=== PATIENT | male | born 1985 | race Caucasian/White ===

== ENCOUNTER 2022-04-07 07:06 | Emergency (ER) | payer OTHER, SELFPAY ==
[2022-04-07 07:22] VITALS: BP 161/106; PULSE 102; RESP 18; TEMP 36.7; O2SAT 97
[2022-04-07 09:04] VITALS: BP 161/106; PULSE 102; RESP 17; TEMP 36.6; O2SAT 97
[2022-04-07] MEDS: LIDOCAINE, EPINEPHRINE, TETRACAINE VISCOUS SOLN 3 ML TOPICAL (10:27)
--- NOTE | 2022-04-07 11:36 | ED.SKABFB ---
HPI - Skin/Abscess/Foreign Bdy General Chief complaint: Skin/Abscess/Foreign Body Stated complaint: cyst to scalp Time Seen by Provider: 04/07/22 09:30 History of Present Illness HPI narrative: Patient is a 36-year-old male who presents ER with a painful cyst to his left scalp. He has history of cysts in his groin scalp and other parts of his body. They are occasionally become infected. This 1 became inflamed 2 days ago and he has pain going down towards his ear. No fevers or chills or sweats. No drainage. Hurts to touch. Related Data Allergies Allergy/AdvReac Type Severity Reaction Status Date / Time cat dander Allergy Unknown Verified 03/01/15 10:35 No Known Allergies Allergy Unverified 06/21/16 14:05 Review of Systems Constitutional: Constitutional: Denies chills and Denies fever(s) Integumentary/Breasts: Skin/Breast: Denies pruritus, Reports erythema and Denies rash Comments: Scalp cysts PMFSH Past Medical History Medical History (Updated 04/07/22 @ 11:52 by Antonio Paige MD) Essential (primary) hypertension Mixed hyperlipidemia Surgical History Surgical History (Updated 04/07/22 @ 11:52 by Antonio Paige MD) No pertinent past surgical history Social History Social History (Updated 04/07/22 @ 11:53 by Antonio Paige MD) Smoking status: Current every day smoker Alcohol intake: current Exam Narrative: GENERAL: Well-appearing, well-nourished, and in no acute distress. HEAD: Normocephalic. 2 separate scalp cysts largest being midline but not inflamed or tender. Left temporal region has a 1 cm diameter inflamed cyst that is very tender to touch. ENT: Mucous membranes moist. Posterior auricular lymphadenopathy left side. SKIN: Warm, dry, no rash. NEURO: Alert and oriented x3. PSYCH: Normal mood and affect. Course Course Emergency Course: Cyst removed. Everson here. Bactrim for home. Vital Signs Vital signs: Vital Signs Temperature 98.0 F 04/07/22 07:22 Pulse Rate 102 H 04/07/22 07:22 Respiratory Rate 18 04/07/22 07:22 Blood Pressure 161/106 H 04/07/22 07:22 Pulse Oximetry 97 04/07/22 07:22 Oxygen Delivery Room Air 04/07/22 07:22 Temperature 98 F 04/07/22 09:04 Pulse Rate 102 H 04/07/22 09:04 Respiratory Rate 17 04/07/22 09:04 Blood Pressure 161/106 H 04/07/22 09:04 Pulse Oximetry 97 04/07/22 09:04 Oxygen Delivery Room Air 04/07/22 09:04 Procedures Abscess I/D scalp: Date of Incision: 04/07/22 Time of Incision: 11:36 Local Anesthetic: none (LET) Technique: incised with #11 blade Irrigation: No Packing used?: iodoform I&D Results: Other (cystic cavity) Complications: pain Discharge Plan Discharge Clinical Impression: Scalp cyst Patient Disposition: Home, Self-Care Condition: Stable Instructions: Antibiotic Form, Cyst (ED) Additional Instructions: Return to the ER if you have chest pain or shortness of breath, you cannot keep down food or water, you lose consciousness, you have additional concerns. Remove your packing in 24 to 48 hours. Prescriptions: New sulfamethoxazole-trimethoprim [Bactrim DS] 800-160 mg tablet 1 tablet PO Q12H Qty: 14 0RF Follow-up/Referrals: UNKNOWN,DOCTOR [Primary Care Provider] - 1 Week Stand Alone Forms: Work/School Release IP
[2022-04-07] MEDS: HYDROcodone/acetaminophen (*CRX) 5-325 MG TABLET 1 TAB PO (12:05)
[2022-04-07 12:35] VITALS: TEMP 36.6
[2022-04-07 12:41] VITALS: BP 168/88; PULSE 83; RESP 15; TEMP 36.6; O2SAT 97
== END 2022-04-07 12:48 | disposition home or self-care (01) ==
PROVIDERS: Emergency Provider Emergency Medicine
DX: L72.9 Follicular cyst of the skin and subcutaneous tissue, unspecified (principal); I10 Essential (primary) hypertension; E78.2 Mixed hyperlipidemia; F17.200 Nicotine dependence, unspecified, uncomplicated
CPT/HCPCS: 10061; 99283; A9270

== ENCOUNTER 2022-06-27 13:07 | Outpatient (NON) | payer OTHER, SELFPAY | END 2022-06-27 13:08 | disposition home or self-care (01) | PROVIDERS: Visit Provider Nurse Practitioner | DX: L72.11 Pilar cyst (principal); B07.9 Viral wart, unspecified | CPT/HCPCS: 88304; 88305 ==

== ENCOUNTER 2023-09-26 10:58 | Outpatient (CLI) | payer OTHER, SELFPAY ==
--- NOTE | ~2023-09-26 | XR_ITS ---
XR foot RT 2V Ordering provider: Melodie Lee APRN History: . No injury pain at 1st MP joint for 1 year . Comparison: None. FINDINGS: BONES: No acute fracture or dislocation. JOINT SPACES: Normal. No tarsal coalition. SOFT TISSUES: Normal. IMPRESSION: No acute osseous abnormality of the right foot. Reviewed, dictated and finalized at location A.
== END 2023-09-26 10:59 ==
LOC: MICIMG 11:01
PROVIDERS: PCP Nurse Practitioner Family; Visit Provider Nurse Practitioner Family
DX: M25.571 Pain in right ankle and joints of right foot (principal)
CPT/HCPCS: 73620

== ENCOUNTER 2024-05-07 01:04 | Day surgery (SDC) | payer OTHER, SELFPAY ==
[2024-04-25 13:38] VITALS: BMI 34.9
--- NOTE | 2024-04-25 13:45 | PC.NURSE ---
Report to the Outpatient Waiting Room, entrance under the green pavilion located off [facility], at time _1000_ on date _[id number]_. Planned Procedure Time: _1200_.? Time changes happen often and if your time is changed the preop area will call you the afternoon before. - You and your visitor will be asked to self-screen and do not enter if you have any COVID symptoms. Please call surgeon if you need to reschedule. - A mask is optional within the hospital at this time. Patients may have clear liquids (water, carbonated beverages, clear teas, apple juice) until 3 hours prior to surgery with a maximum of 20 ounces. - No food from midnight until time of surgery and no smoking, or chewing tobacco (or any form of nicotine). No chewing gum, candy or mints. Take only the following medications with a SIP of water on the morning of surgery: __None DO NOT STOP ANY OF YOUR OTHER PRESCRIPTION MEDICATIONS PRIOR TO SURGERY EXCEPT THE FOLLOWING Hold all vitamins and supplements for 3 days per anesthesiologist. Medications to discontinue per physician Date to take last dose Please no make-up, nail spanish, hairspray, perfume, deodorant, or body powder the day of surgery.? No jewelry (including any body piercings) or valuables the day of surgery, leave them at home.? Please take a shower or bath the night before, or the morning of, surgery with an antibacterial soap.? Wear comfortable, loose fitting clothing.? - Jewelry must be removed prior to entering the operating room.? Rings and piercings that are not removed may be cut off. - The hospital will not accept responsibility for valuables.? - Please leave all valuables, including medications, at home the day of surgery. If you are going home after surgery, a licensed courtesy car driver must drive you home.? - NO public transportation without another adult if you receive anesthesia. - We recommend that an adult stay with you for 24 hours following discharge. - We also recommend that you do not drive, make important decision, drink alcoholic beverages, or take any drugs that were not prescribed by your health care provider for at least 24 hours after your discharge time. Follow any additional instructions given to you from your surgeon. Telephone instructions given to _Chad__and asked if any additional questions and then verbalized understanding. Patient advised to call surgeon office or pre surgery nurse liaison [phone] if any additional questions.
[2024-05-07] VITALS (7 sets, daily range): BP systolic 140–158; BP diastolic 82–103; PULSE 74–83; RESP 14–20; TEMP 36.3–36.4; O2SAT 96–100; BMI 36.2
--- OUTSIDE RECORDS SUMMARY | 2024-05-07 01:07 | XMS_ITS | Clinical Summary ---
Author Organization [facility] Address [address] [place] [address] Care Team Providers Care Skip Loader Name Role Phone Unknown, Notinfile Primary Care Provider Unavail able Allergies No known active allergies Medications ketorolac (TORADOL) 10 mg tablet Take 1 tablet (10 mg total) by mouth every 6 (six) hours as needed for pain 20 tablet 02/21/2023 Active Active Problems Problem Noted Date Diagnosed Date Hypertension, essential 09/21/2023 Chronic low back pain 09/21/2023 Social History Tobacco Use Types Packs/Day Years Used Date Smoking Tobacco: Never Assessed Personal Safety Answer Date Recorded Have you ever been in or are you currently in a harmful physical or emotional relationship or is someone making you feel afraid or unsafe? Denies 02/21/2023 Sex and Gender Information Value Date Recorded Sex Assigned at Not on file Legal Sex Male 8:24 PM RADAR MECHANIC Gender Identity Not on file Sexual Orientation Not on file Last Filed Vital Signs Vital Sign Reading Time Taken Comments Blood Pressure 166/87 02/21/2023 7:55 PM RADAR MECHANIC Pulse 89 02/21/2023 7:55 PM RADAR MECHANIC Temperature 37 C (98.6 F) 02/21/2023 5:40 PM RADAR MECHANIC Respiratory Rate 18 02/21/2023 7:55 PM RADAR MECHANIC Oxygen Saturation 100% 02/21/2023 7:55 PM RADAR MECHANIC Inhaled Oxygen Concentration - - Weight 113.4 kg (250 lb) 02/21/2023 5:40 PM RADAR MECHANIC Height 180.3 cm (5' 11 ) 02/21/2023 5:40 PM RADAR MECHANIC Body Mass Index 34.87 02/21/2023 5:40 PM RADAR MECHANIC Plan of Treatment Health Maintenance Due Date Last Done Comments Depression Screening 1985 Hepatitis C Screening 1985 DTaP/Tdap/Td Vaccine (1 - Tdap) 1997 Varicella Vaccines (1 of 2 - 13+ 2-dose series) 12/10/1999 Hepatitis B Screening 2004 Regular Well Visit/Exam 18-64 2004 Covid-19 Vaccine (3 - 2023-2 5 season) 2023 10/05/2020, 09/14/2020 Influenza Vaccine (#1) 2023 HPV Vaccines Aged Out No longer eligi ble based on patient's age to complete this topic Pneumococcal vaccine <65 Aged Out No longer eligible based on patient's age to complete this topic Insurance [facility] CHO[facility]US [facility] CHO[facility] PL[facility] Care Teams Skip Loader Relationship Specialty Start Date End Date Unknown, Notinfile PCP - General 09/13/23
--- OUTSIDE RECORDS SUMMARY | 2024-05-07 01:07 | XMS_ITS | Referral Summary ---
Author Organization [facility] Address [address] [place] [address] Care Team Providers Care Yard Spotter Name Role Phone Unknown, Notinfile Primary Care [...] on file Legal Sex Male 8:24 PM CNC GRINDER Gender Identity Not on file Sexual Orientation Not on file Last Filed Vital Signs Vital Sign Reading Time Taken Comments Blood Pressure 166/87 02/21/2023 7:55 PM CNC GRINDER Pulse 89 02/21/2023 7:55 PM CNC GRINDER Temperature 37 C (98.6 F) 02/21/2023 5:40 PM CNC GRINDER Respiratory Rate 18 02/21/2023 7:55 PM CNC GRINDER Oxygen Saturation 100% 02/21/2023 7:55 PM CNC GRINDER Inhaled Oxygen Concentration - - Weight 113.4 kg (250 lb) 02/21/2023 5:40 PM CNC GRINDER Height 180.3 cm (5' 11 ) 02/21/2023 5:40 PM CNC GRINDER Body Mass Index 34.87 02/21/2023 5:40 PM CNC GRINDER Plan of Treatment Not on file Insurance [facility] CHO[facility] PLUS [facility] PL[facility] Care Teams Yard Spotter Relationship Specialty Start Date End Date Unknown, Notinfile PCP - General 09/13/23
[2024-05-07] MEDS: LACTATED RINGERS 1,000 ML 30 ML IV CONT (10:30)
--- NOTE | 2024-05-07 11:02 | WPDHPUPDATE1 ---
History and Physical Update Update Date/Time: 05/07/24 11:02 History and Physical has been reviewed, including an updated exam of the patient. There are NO changes in the patient's condition. Risks, benefits, and alternatives have been discussed and questions answered. Patient agrees to proceed with procedure.
--- NOTE | 2024-05-07 12:20 | P.PNAN_ITS ---
Anes - Initial Pre Proc Eval Procedure: Operation Date: 05/07/24 12:00 Proposed Procedures p Excision Right Groin Abscess Cavity - Crista Lawson MD Date/Time: 05/07/24 12:20 Surgeon: Crista Lawson MD Pre Op Diagnosis: chronic Right Groin Abscess Patient Data Age: 38 Gender: M Height: 1.8 m Weight: 117.8 kg Last Vital Signs Temp 97.5 F L 05/07/24 10:05 Pulse 80 05/07/24 10:05 Resp 16 05/07/24 10:05 BP 148/99 H 05/07/24 10:05 Pulse Ox 96 05/07/24 10:05 O2 Del Method Room Air 05/07/24 10:05 Allergies Allergy/AdvReac Type Severity Reaction Status Date / Time cat dander Allergy Unknown Unknown Verified 05/07/24 10:34 Home Medications ?Medication ?Instructions ?Recorded ?Confirmed ?Type allopurinol 100 mg tablet 100 mg PO DAILY #90 tabs 12/26/23 05/07/24 Rx syringe with needle 3 mL 21 gauge #100 ea 03/27/24 04/25/24 Rx x 1 1/2 (Page Mage Luer Lock Syringe with needle) testosterone cypionate 200 mg/mL 200 mg IM .COMPLEX #10 mL 03/27/24 05/07/24 Rx intramuscular oil Patient hx anesthesia problems: none Family hx anesthesia problems: none Results Review: All pre-operative results and documents have been reviewed as part of the pre- operative evaluation. [facility] Past Medical History Medical History Encounter for screening for other viral diseases Encounter to establish care Mixed hyperlipidemia Essential (primary) hypertension Surgical History Surgical History No pertinent past surgical history Family History Family History Father Alcoholism Mother Alcoholism Grandparent Cancer Parkinson disease Grandparent Heart disease Social History Social History Smoking packs per day: 1 Smoking cigarettes per day: 20.0 Years smoked: 19 Smoking pack-years: 19.00 Smoking status: Current every day smoker Tobacco type: cigarettes Alcohol intake: current Drinks per week: 20 Substance use: unknown Substance use type: does not use Living arrangements: with family Spiritual care concerns: No Anes - Eval Final PreProcedure Day of Procedure 05/07/24 12:20 Patient weight: obese Lungs: normal air movement Airway: Mallampati scale class II Neurological: alert and oriented Last oral intake: >/= 8 hours ASA classification: III Emergent: no Anesthetic plan: proceed Anesthesia type and monitoring: general LMA and standard monitoring Results Review: All pre-operative results and documents have been reviewed as part of the pre- operative evaluation. Prev HTN, not on meds currently, pt w mild ARACELIS and has machine but PCP states it is mild so could go without. Smoker, 1ppd for 20 years, none this am. ETOH use noted. Informed Consent: The patient's anesthetic plan and its attendant risks and benefits were discussed with the patient/family/POA. Questions were solicited and answers provided to the satisfaction of the patient/family/POA.
[2024-05-07] MEDS: ceFAZolin 2 GM/D5W 50 ML 2 GM/50 ML BAG IVPB (12:35)
[2024-05-07] MEDS: BUPIVACAINE/EPINEPHRINE 0.5% 50 ML VIAL 10 ML INFILTRATE (12:46)
--- NOTE | 2024-05-07 13:02 | W.PM.PROC2 ---
Procedure Note - Detailed Date of Procedure 05/07/24 Pre-op Diagnosis hidradenitis suppurativa of right groin, chronic abscess cavity x2 Post-op Diagnosis Same Procedure Performed excision hidradenitis suppurativa right groin, chronic abscess cavity x2, superior area measuring 3.5 x 2 cm, inferior area measuring 2.5 x 1 cm Surgeon Crista Lawson MD Anesthesia General and Local Indications 38-year-old male presenting to the office with chronic right groin abscesses. Exam consistent with hidradenitis suppurativa. Two areas of chronic abscess with drainage. Findings Superior area with sinus tracts and chronic abscess cavity measuring 3.5 x 2 cm, inferior chronic abscess cavity measuring 2.5 x 1 cm Description of Procedure The patient was taken to the operating room and placed in the supine position. After adequate induction of general anesthesia, the patient was prepped and draped in the normal sterile fashion. A time-out was then done to verify the patient's identity, as well as the procedure being performed. I began by localizing the 2 areas of chronic abscess cavities including the multiple sinus tracts in the upper. I then made an elliptical incision over the superior chronic abscess cavity to encompass the inferior sinus tracts. This incision was carried down through the dermis and into the subcutaneous tissue. The entire area was excised including subcutaneous tissue to encompass the inflammatory tissue and cavity. Once completely excised, it was sent to pathology for further review. The measurements of the excised area were 3.5 x 2 cm. Hemostasis was gained with the Bovie cautery. The cavity was copiously washed out. No other pathology was noted. I then localized the subcutaneous tissue around the excision site. I then closed the subcutaneous tissue with interrupted 3-0 Vicryl suture. The dermis was closed with 4-0 Monocryl subcuticular suture. Dermabond was then placed on the wound. I then made an elliptical incision in the dermis encompassing the inferior chronic abscess cavity. Again, this was taken down through the dermis and into the subcutaneous tissue. I then excised the chronic abscess cavity and inflammatory tissue. Once completely excised, the area measured 2.5 x 1 cm. No other pathology was noted in the cavity. I gained hemostasis with the Bovie cautery and the area was copiously washed out. The subcutaneous tissue was closed with interrupted 3-0 Vicryl sutures. The dermis was closed with 4-0 Monocryl subcuticular suture. Dermabond was then placed on this wound. The patient tolerated the procedure well and was extubated postoperatively. He will be transferred to the recovery room in stable condition. Estimated Blood Loss 10 Drains No Packing No Pathology Yes Complications No immediate complications Condition Stable Disposition PACU [facility] Billing Surgery - Charge Forward: Surgery Billing
[2024-05-07] MEDS: oxyCODONE HCL (*CRX) 5 MG TAB IR PO (14:07)
== END 2024-05-07 14:34 | disposition home or self-care (01) ==
PROVIDERS: PCP Nurse Practitioner Family; Visit Provider Surgery
PROC: (CPT 11462; principal; 2024-05-07 12:00)
DX: L02.214 Cutaneous abscess of groin (principal); L73.2 Hidradenitis suppurativa; L91.0 Hypertrophic scar; E78.2 Mixed hyperlipidemia; I10 Essential (primary) hypertension; F17.210 Nicotine dependence, cigarettes, uncomplicated; E66.9 Obesity, unspecified; Z68.36 Body mass index [BMI] 36.0-36.9, adult; Z80.9 Family history of malignant neoplasm, unspecified; Z82.49 Family history of ischemic heart disease and other diseases of the circulatory system
CPT/HCPCS: 11462; 11406; 12032; 88304; A9270; J0690; J2003; J2250; J2405; J2704; J3010; J7120

== ENCOUNTER 2024-07-04 10:20 | Outpatient (CLI) | payer OTHER, SELFPAY ==
--- NOTE | 2024-07-04 10:21 | EST_ITS ---
Patient Info Name: Jatin Marti Age: 38 years : 1985 Gender: Male Ht: 71 in Wt: 250 lbs BSA: 2.42 m2 HR: 89 bpm BP: 152 / 92 mmHg Exam Date: 07/04/2024 10:24 AM Exam Location: Echo Lab Patient Status: Outpatient Admit Date: 07/04/2024 Staff Ordering Physician: Melodie Lee APRN Box Inspector: Liliam Montanez RDCS Attending Provider: Exercise Technologist: Liliam Montanez RDCS Exercise Physician: Nolberto See DO Exam Type: CA stress echo Study Info Indications R07.9 - Chest pain, unspecified Treadmill exercise stress echocardiogram is performed. Summary 1. 1. Negative Jayme exercise stress test for ischemic ST changes by ECG criteria. 2. 2. Good functional capacity, achieving 10 METs of workload. 3. 3. Baseline hypertension. 4. 4. Appropriate HR response to exercise. 5. 5. Appropriate HR recovery at 1 minute post exercise. 6. 6. Negative stress echocardiogram for ischemia by wall motion analysis. 7. 7. Patient informed of the above results. Stress Echo Findings Left Ventricle Appropriate increase in LV endocardial thickening with systole. Appropriate augmentation of contractility with systole. No wall motion abnormality. Left Ventricle Normal LV systolic function, no wall motion abnormality. Protocol: Jayme Stress ECG Details Stage: REST Duration (min): 0 min : 44 sec Speed (mph): 0.0 Grade (%): 0 HR (bpm): 87 SBP (mmHg): 152 DBP (mmHg): 92 METS: --- Stage: REST Duration (min): 12 min : 12 sec Speed (mph): 0.0 Grade (%): 0 HR (bpm): 86 SBP (mmHg): 152 DBP (mmHg): 92 METS: --- Stage: STAGE 1 Duration (min): 1 min : 0 sec Speed (mph): 1.7 Grade (%): 10 HR (bpm): 110 SBP (mmHg): 152 DBP (mmHg): 92 METS: --- Stage: STAGE 1 Duration (min): 2 min : 0 sec Speed (mph): 1.7 Grade (%): 10 HR (bpm): 114 SBP (mmHg): 152 DBP (mmHg): 92 METS: --- Stage: STAGE 1 Duration (min): 3 min : 0 sec Speed (mph): 1.7 Grade (%): 10 HR (bpm): 116 SBP (mmHg): 191 DBP (mmHg): 94 METS: --- Stage: STAGE 2 Duration (min): 1 min : 0 sec Speed (mph): 2.5 Grade (%): 12 HR (bpm): 120 SBP (mmHg): 191 DBP (mmHg): 94 METS: --- Stage: STAGE 2 Duration (min): 2 min : 0 sec Speed (mph): 2.5 Grade (%): 12 HR (bpm): 125 SBP (mmHg): 175 DBP (mmHg): 92 METS: --- Stage: STAGE 2 Duration (min): 3 min : 0 sec Speed (mph): 2.5 Grade (%): 12 HR (bpm): 128 SBP (mmHg): 175 DBP (mmHg): 92 METS: --- Stage: STAGE 3 Duration (min): 1 min : 0 sec Speed (mph): 3.4 Grade (%): 14 HR (bpm): 137 SBP (mmHg): 170 DBP (mmHg): 92 METS: --- Stage: STAGE 3 Duration (min): 2 min : 0 sec Speed (mph): 3.4 Grade (%): 14 HR (bpm): 145 SBP (mmHg): 170 DBP (mmHg): 92 METS: --- Stage: STAGE 3 Duration (min): 3 min : 0 sec Speed (mph): 3.4 Grade (%): 14 HR (bpm): 149 SBP (mmHg): 185 DBP (mmHg): 99 METS: --- Stage: STAGE 4 Duration (min): 0 min : 18 sec Speed (mph): 0.0 Grade (%): 0 HR (bpm): 158 SBP (mmHg): 185 DBP (mmHg): 99 METS: --- Stage: RECOVERY Duration (min): 0 min : 41 sec Speed (mph): 0.0 Grade (%): 0 HR (bpm): 129 SBP (mmHg): 185 DBP (mmHg): 99 METS: --- Stage: RECOVERY Duration (min): 1 min : 41 sec Speed (mph): 0.0 Grade (%): 0 HR (bpm): 132 SBP (mmHg): 185 DBP (mmHg): 99 METS: --- Stage: RECOVERY Duration (min): 2 min : 41 sec Speed (mph): 0.0 Grade (%): 0 HR (bpm): 110 SBP (mmHg): 185 DBP (mmHg): 99 METS: --- Stage: RECOVERY Duration (min): 3 min : 41 sec Speed (mph): 0.0 Grade (%): 0 HR (bpm): 102 SBP (mmHg): 199 DBP (mmHg): 88 METS: --- Stage: RECOVERY Duration (min): 4 min : 41 sec Speed (mph): 0.0 Grade (%): 0 HR (bpm): 105 SBP (mmHg): 199 DBP (mmHg): 88 METS: --- Stage: RECOVERY Duration (min): 5 min : 6 sec Speed (mph): 0.0 Grade (%): 0 HR (bpm): 100 SBP (mmHg): 166 DBP (mmHg): 73 METS: --- Rest HR: 86 bpm Peak HR: 159 bpm Rest Sys BP: 152 mmHg Peak Sys BP: 199 mmHg Max Pred HR: 183 bpm % Max Pred HR: 87 % Target HR: 156 bpm Max RPP: 31,641 bpm*mmHg Landin Score: -16 Termination Reason: Reached target heart rate or workload Cardiac Symptoms: Shortness of breath Max ST Seg Deviation: 5.10 mm Total Time: 9 min : 18 sec Rest Ruiz BP: 92 mmHg Peak Ruiz BP: 88 mmHg Angina Score: None Total METS: 10.6 Resting ECG Sinus rhythm. Stress ECG No ST changes. Arrhythmias None. Report Signatures Stress ECG Echo
--- OUTSIDE RECORDS SUMMARY | 2024-07-05 11:47 | XMS_ITS | Clinical Summary ---
Author Organization [facility] [place] [place] Address [address] [place] [address] Care Team Providers Care Trolley Cleaner Name Role Phone Unknown, Notinfile Primary Care [...] on file Legal Sex Male 8:24 PM SLINGER SEQUINS Gender Identity Not on file Sexual Orientation Not on file Last Filed Vital Signs Vital Sign Reading Time Taken Comments Blood Pressure 166/87 02/21/2023 7:55 PM SLINGER SEQUINS Pulse 89 02/21/2023 7:55 PM SLINGER SEQUINS Temperature 37 C (98.6 F) 02/21/2023 5:40 PM SLINGER SEQUINS Respiratory Rate 18 02/21/2023 7:55 PM SLINGER SEQUINS Oxygen Saturation 100% 02/21/2023 7:55 PM SLINGER SEQUINS Inhaled Oxygen Concentration - - Weight 113.4 kg (250 lb) 02/21/2023 5:40 PM SLINGER SEQUINS Height 180.3 cm (5' 11 ) 02/21/2023 5:40 PM SLINGER SEQUINS Body Mass Index 34.87 02/21/2023 5:40 PM SLINGER SEQUINS Plan of Treatment Health Maintenance Due Date [...] patient's age to complete this topic Insurance [facility] CHOICE PLUS [facility]PPO Address: [place] [address] [facility] CHOICE PLUS [facility]/PPO Address: [address] [place] [id number] Care Teams Trolley Cleaner Relationship Specialty Start Date End Date Unknown, Notinfile PCP - General 09/13/23
--- OUTSIDE RECORDS SUMMARY | 2024-07-05 11:47 | XMS_ITS | Referral Summary ---
Author Organization [facility] Address [address] [place] [address] Care Team Providers Care Cycle Director Name Role Phone Unknown, Notinfile Primary Care [...] on file Legal Sex Male 8:24 PM THINNER SPRAYER Gender Identity Not on file Sexual Orientation Not on file Last Filed Vital Signs Vital Sign Reading Time Taken Comments Blood Pressure 166/87 02/21/2023 7:55 PM THINNER SPRAYER Pulse 89 02/21/2023 7:55 PM THINNER SPRAYER Temperature 37 C (98.6 F) 02/21/2023 5:40 PM THINNER SPRAYER Respiratory Rate 18 02/21/2023 7:55 PM THINNER SPRAYER Oxygen Saturation 100% 02/21/2023 7:55 PM THINNER SPRAYER Inhaled Oxygen Concentration - - Weight 113.4 kg (250 lb) 02/21/2023 5:40 PM THINNER SPRAYER Height 180.3 cm (5' 11 ) 02/21/2023 5:40 PM THINNER SPRAYER Body Mass Index 34.87 02/21/2023 5:40 PM THINNER SPRAYER Plan of Treatment Not on file Insurance [facility] CHOICE PLUS [facility] CHO[facility] PLUS Care Teams Cycle Director Relationship Specialty Start Date End Date Unknown, Notinfile PCP - General 09/13/23
== END 2024-07-04 10:21 | disposition home or self-care (01) ==
PROVIDERS: PCP Nurse Practitioner Family; Visit Provider Nurse Practitioner Family
DX: R07.9 Chest pain, unspecified (principal)
CPT/HCPCS: 93351

== ENCOUNTER 2024-12-19 08:51 | Outpatient (CLI) | payer OTHER, SELFPAY ==
--- NOTE | ~2024-12-19 | US_ITS ---
US abdomen limited Indication: R74.8 - Abnormal levels of other serum enzymes Comparison: None Technique: Salgado-scale and color Doppler images were obtained. Findings: LIVER: Moderate increased echogenicity of the liver. The liver contours appear normal. No intrahepatic biliary duct dilatation. . GALLBLADDER/BILIARY: Unremarkable.No cholelithiais, wall thickening or pericholecystic fluid. No biliary dilatation. CBD 3 mm. Ord sign negative. PANCREAS: Pancreas limited by bowel gas. Right Kidney: The right kidney was not imaged. Impression: Moderate hepatic steatosis versus hepatocellular disease Reviewed, dictated and finalized at location P. Impression: Moderate hepatic steatosis versus hepatocellular disease
== END 2024-12-19 08:52 | disposition home or self-care (01) ==
LOC: MICIMG 08:51
PROVIDERS: PCP Nurse Practitioner Family; Visit Provider Nurse Practitioner Family
DX: R74.8 Abnormal levels of other serum enzymes (principal); K76.0 Fatty (change of) liver, not elsewhere classified; K76.9 Liver disease, unspecified
CPT/HCPCS: 76705